=== PATIENT | female | born 1945 | race Caucasian/White ===

== ENCOUNTER 2016-05-28 16:15 | Inpatient (IN) | payer OTHER, MEDICARE ==
[2016-05-28] MEDS ORDERED: MORPHINE SULFATE 8 MG/ML INJ ONE (16:21)
[2016-05-28] MEDS ORDERED: ONDANSETRON HCL 4 MG/2 ML VIAL ONE (16:21)
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
[2016-05-28 16:42] VITALS: O2SAT 98
[2016-05-28] MEDS ORDERED: IOHEXOL 350 MG/ML 10 ML VIAL (for RAD DIAG) IV ONE (16:42)
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
[2016-05-28] MEDS ORDERED: LISI-515 PO (17:09)
[2016-05-28] MEDS ORDERED: AMLO5 PO (17:09)
[2016-05-28] MEDS ORDERED: METF1000 PO (17:09)
[2016-05-28 17:11] VITALS: RESP 18; O2SAT 100
[2016-05-28 17:12] LABS: I-STAT POTASSIUM 3.8 MMOL/L (3.5-4.9)
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
[2016-05-28 17:29] LABS: BASOPHIL % 0.2 % (0.0-2.0); EOSINOPHIL # 0.1 TH/MM3 (0-0.4); EOSINOPHIL % 0.7 % (0.0-4.0); HEMATOCRIT 39.1 % (35.0-46.0); HEMO FLAGS DIFF FINAL; LYMPH % 8.8 % (9.0-44.0); LYMPHOCYTE # 1.6 TH/MM3 (1.0-4.8); MEAN CELL VOLUME 82.2 FL (80.0-100.0); MEAN CORPUSCULAR HEMOGLOBIN 27.3 PG (27.0-34.0); MEAN CORPUSCULAR HGB CONC 33.2 % (32.0-36.0); MONO % 4.7 % (0.0-8.0); NEUT % 85.6 % (16.0-70.0); PLATELET COUNT 248 TH/MM3 (150-450); RED BLOOD COUNT 4.77 MIL/MM3 (4.00-5.30); RED CELL DISTRIBUTION WIDTH 13.7 % (11.6-17.2); WHITE BLOOD COUNT 18.7 TH/MM3 (4.0-11.0)
[2016-05-28] MEDS ORDERED: ENALAPRILAT 1.25 MG/ML VIAL IV PRN (17:30)
[2016-05-28] MEDS ORDERED: SODIUM CHLORIDE 0.9% FLUSH 5 ML FLUSH IVF PRN (17:30)
[2016-05-28] MEDS ORDERED: MORPHINE SULFATE 4 MG/ML INJ IV PRN (17:30)
[2016-05-28] MEDS ORDERED: MISCELLANEOUS NURSING INFORMATION XX SCH (17:30)
[2016-05-28] MEDS ORDERED: CHLORHEXIDINE GLUCONATE 2 % 1 PACK (2 CLOTHS) TOP PRN (17:30)
[2016-05-28] MEDS ORDERED: ONDANSETRON HCL 4 MG/2 ML VIAL IV PRN (17:30)
[2016-05-28] MEDS ORDERED: ACETAMINOPHEN/HYDROcodone 325 MG/5 MG TAB PO PRN (17:30)
[2016-05-28 17:39] LABS: APTT (PATIENT) 22.5 SEC (24.3-30.1); PROTHROMBIN TIME - PATIENT 10.8 SEC (9.8-11.6)
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
[2016-05-28 18:00] VITALS: BP 145/72; PULSE 106; RESP 18; TEMP 97.8; O2SAT 99
[2016-05-28] MEDS: PANTOPRAZOLE SODIUM 40 MG VIAL IVP SCH (18:04)
[2016-05-28] MEDS: SODIUM CHLOR 0.9% 1000 ML INJ 1,000 ML IV SCH (18:04)
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
[2016-05-28 19:00] VITALS: BP 145/76; PULSE 102; RESP 18; TEMP 97.8; O2SAT 99
[2016-05-28] MEDS: DOCUSATE SODIUM 100 MG CAP PO SCH (20:20)
[2016-05-28 20:55] VITALS: BP 136/69; PULSE 111; RESP 18; TEMP 97.5; O2SAT 98
[2016-05-28] MEDS ORDERED: metFORMIN HCL 500 MG TAB PO ONE (21:45)
[2016-05-28] MEDS: ACETAMINOPHEN/HYDROcodone 325 MG/5 MG TAB PO PRN (23:30)
[2016-05-29 00:15] VITALS: BP 118/68; PULSE 102; RESP 17; TEMP 96.5; O2SAT 99
[2016-05-29] MEDS ORDERED: GLUCAGON 1 MG/ML VIAL OTHER PRN (00:15)
[2016-05-29] MEDS ORDERED: DEXTROSE 50% IN WATER 50 ML VIAL(D50) IV PUSH PRN (00:15)
[2016-05-29] MEDS: SODIUM CHLOR 0.9% 1000 ML INJ 1,000 ML IV SCH ×2 (03:24→13:24)
[2016-05-29 03:56] VITALS: O2SAT 93
[2016-05-29] MEDS ORDERED: CHLORHEXIDINE GLUCONATE 2 % 1 PACK (2 CLOTHS) TOP SCH (04:00)
[2016-05-29] MEDS: ACETAMINOPHEN/HYDROcodone 325 MG/5 MG TAB PO PRN ×3 (04:11→14:12)
[2016-05-29 04:30] VITALS: BP 132/67; PULSE 96; RESP 17; TEMP 96.5; O2SAT 95
[2016-05-29 05:09] LABS: BASOPHIL # 0.1 TH/MM3 (0-0.2); BASOPHIL % 0.5 % (0.0-2.0); EOSINOPHIL # 0.1 TH/MM3 (0-0.4); EOSINOPHIL % 0.6 % (0.0-4.0); HEMO FLAGS DIFF FINAL; LYMPH % 20.2 % (9.0-44.0); MEAN CELL VOLUME 80.9 FL (80.0-100.0); MEAN CORPUSCULAR HGB CONC 33.4 % (32.0-36.0); MONO % 8.9 % (0.0-8.0); NEUT % 69.8 % (16.0-70.0); PLATELET COUNT 216 TH/MM3 (150-450); RED BLOOD COUNT 4.45 MIL/MM3 (4.00-5.30); RED CELL DISTRIBUTION WIDTH 13.6 % (11.6-17.2); WHITE BLOOD COUNT 10.1 TH/MM3 (4.0-11.0)
[2016-05-29 05:15] LABS: BICARBONATE 24.6 MEQ/L (21.0-32.0); POTASSIUM 3.8 MEQ/L (3.5-5.1)
[2016-05-29] MEDS: LOW DOSE INSULIN NOVOLIN REGULAR SUPPLEMENTAL SCALE SQ SCH ×2 (07:00→11:00)
--- NOTE | 2016-05-29 07:17 | RADRPT ---
EXAM DATE/TIME: 05/29/2016 06:39 [facility] COMPARISON: CHEST SINGLE AP, May 28, 2016, 16:11. INDICATIONS : Pain left chest and ribs MEDICAL HISTORY : None. SURGICAL HISTORY : None. ENCOUNTER: Subsequent ACUITY: 2 days PAIN SCORE: 6/10 LOCATION: Left chest FINDINGS: The heart size is normal. There is elevation of the left hemidiaphragm. Lungs are clear. No effusion is seen. CONCLUSION: No acute disease. Rafael Cintron MD on May 29, 2016 at 7:15 Board Certified Radiologist. This report was verified electronically.
[2016-05-29 08:00] VITALS: BP 130/68; PULSE 98; RESP 16; TEMP 96; O2SAT 96
[2016-05-29] MEDS: metFORMIN HCL 500 MG TAB PO SCH ×2 (08:10→09:00)
[2016-05-29] MEDS: DOCUSATE SODIUM 100 MG CAP PO SCH (08:10)
[2016-05-29] MEDS: PANTOPRAZOLE SODIUM 40 MG VIAL IVP SCH (08:12)
[2016-05-29] MEDS ORDERED: DOCUSATE SODIUM 50 MG/SENNA 8.6 MG TAB PO SCH (10:00)
[2016-05-29] MEDS ORDERED: MAGNESIUM HYDROXIDE SUSP 30 ML CUP PO SCH (10:00)
[2016-05-29] MEDS ORDERED: INFLUENZA VIRUS VACCINE (QUADRIVALENT) 0.5 ML SYR IM ONE (10:00)
[2016-05-29 12:00] VITALS: BP 136/67; PULSE 100; RESP 16; TEMP 95.8; O2SAT 96
[2016-05-29] MEDS ORDERED: ONDA4TAB7 PO (13:42)
[2016-05-29] MEDS ORDERED: ONDANSETRON ODT 4 MG TAB PO PRN (14:00)
[2016-05-29] MEDS ORDERED: HYDR-3516 PO (14:59)
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
== END 2016-05-29 18:51 | disposition home or self-care (01) | DRG 184 ==
LOC: NEPI 16:15 → EDBD 17:19 → NEDA 17:19 → N06A 19:42
PROVIDERS: ADMIT Surgery; ATTEND Surgery
DX: S22.42XA Multiple fractures of ribs, left side, initial encounter for closed fracture (principal); S36.892A Contusion of other intra-abdominal organs, initial encounter; J90 Pleural effusion, not elsewhere classified; E11.9 Type 2 diabetes mellitus without complications; N20.0 Calculus of kidney; S06.0X9A Concussion with loss of consciousness of unspecified duration, initial encounter; I10 Essential (primary) hypertension; I25.10 Atherosclerotic heart disease of native coronary artery without angina pectoris; Z87.891 Personal history of nicotine dependence; Z95.5 Presence of coronary angioplasty implant and graft; Z96.659 Presence of unspecified artificial knee joint; V43.62XA Car passenger injured in collision with other type car in traffic accident, initial encounter; Y92.410 Unspecified street and highway as the place of occurrence of the external cause
CPT/HCPCS: 70450; 71010; 71260; 72125; 72170; 73020; 73564; 74177; 80048; 82435; 82565; 82947; 82948; 84132; 84295; 84520; 85025; 85610; 85730; 86850; 86900; 86901; 90686; 94150; 94667; 96374; 96375; 99291; C9113; G0390; J2270; J2405; J7030; Q2038; Q9967